=== PATIENT | female | born 1995 | race Caucasian/White ===

== ENCOUNTER → 2017-08-21 | Outpatient (CLI) | payer BC | LOC: COL.RAD 08-11 12:30 | DX: S73.191A Other sprain of right hip, initial encounter (principal); M25.852 Other specified joint disorders, left hip; S73.192A Other sprain of left hip, initial encounter; M25.851 Other specified joint disorders, right hip | CPT/HCPCS: A9585; J3301; Q9967 ==

== ENCOUNTER → 2017-10-14 | Outpatient (CLI) | payer BC | LOC: COL.RAD 12:56 | DX: M25.552 Pain in left hip (principal) | CPT/HCPCS: J3301; Q9967 ==

== ENCOUNTER → 2017-11-11 | Outpatient (CLI) | payer BC | LOC: COL.RAD 09:33 | DX: M25.551 Pain in right hip (principal) | CPT/HCPCS: J3301 ==